=== PATIENT | female | born 1955 | race Caucasian/White ===

== ENCOUNTER → 2016-08-28 | Outpatient (CLI) | payer OTHER ==
--- NOTE | 2016-08-28 18:33 | KCIC ---
LOWER EXT JOINT WO LT dated 08/28/2016 4:15 PM Indication: Left ankle and foot pain unable to bear weight history of restless leg syndrome, pain and swelling for 6 weeks. No known injury. Comparison: No comparison is available. Technique: Routine multiplanar multisequence imaging performed. No contrast administered. Findings: There is a longitudinal split tear of the peroneus brevis at the level of the retrofibular groove. Increased signal in the tendon substance with edema at the superior and inferior retinaculum. The distal tendon is intact. There is also mild increased signal and thickening of the peroneus longus which is otherwise intact. Flexor and extensor tendons are intact. Small amount of nonspecific fluid at the tibialis posterior tendon sheath. Anterior talofibular ligament and posterior talofibular ligament are intact. Calcaneofibular ligament is intact. No abnormality of the deltoid complex. The tibiofibular ligaments are intact. Achilles tendon and plantar fascia are intact. No inflammatory changes along the Achilles peritenon. Patchy edema throughout the subcutaneous tissues, more focally at the lateral aspect of the joint. No joint effusion or loose body. The talar dome is intact. There is mild edema within the marrow of the posterior distal fibula near the retrofibular groove. Marrow signal is otherwise homogeneous. Impression: 1. Tenosynovitis of the peroneus longus and peroneus brevis. There is a longitudinal split tear of the peroneus brevis originating near the level of the retropharyngeal improved. 2. Otherwise no evidence of internal derangement. 3. Nonspecific edema within the subcutaneous tissues, greatest on the lateral side. Electronically signed by: Johnny Key MD (08/28/2016 6:30 PM)
== END | disposition home or self-care (01) ==
LOC: KCIC MRI 16:12
PROVIDERS: ATTEND Nurse Practitioner Family
DX: M25.572 Pain in left ankle and joints of left foot (principal)
CPT/HCPCS: 73721